=== PATIENT | female | born 1990 | race Caucasian/White ===

== ENCOUNTER 2021-12-09 14:40 | Emergency (ER) | payer OTHER | END 2021-12-09 16:45 | disposition home or self-care (01) | LOC: ERS 14:40 | DX: S86.911A Strain of unspecified muscle(s) and tendon(s) at lower leg level, right leg, initial encounter (principal); X58.XXXA Exposure to other specified factors, initial encounter ==

== ENCOUNTER 2024-05-12 08:29 | Outpatient (CLI) | payer OTHER | END 2024-05-12 08:30 | disposition home or self-care (01) | LOC: ULT 08:29 | PROVIDERS: ATTEND Obstetrics & Gynecology | DX: N94.6 Dysmenorrhea, unspecified (principal); N88.8 Other specified noninflammatory disorders of cervix uteri | CPT/HCPCS: 76856 ==